=== PATIENT | male | born 1985 | race Caucasian/White ===

== ENCOUNTER 2024-08-19 23:36 | Emergency (ER) | payer MEDICAID ==
[~2024-08-19] VITALS: Ht 172.7 cm; Wt 86.0 kg
[~2024-08-19 23:36] MED LIST: NORPTMEDS CO
[2024-08-20 00:58] VITALS: BP 166/96; PULSE 110; RESP 18; TEMP 98.1; O2SAT 96
[2024-08-20] MEDS ORDERED: IBUP-1456 PO (01:04)
[2024-08-20] MEDS ORDERED: CLIN1CAP70 PO (01:04)
--- NOTE | 2024-08-20 01:05 | ED.PDOC ---
Musculoskeletal HPI Comments 39-year-old male presents to ER with complaints of left 3rd finger pain x two weeks. Patient states that he had stitches placed to left 3rd finger from a laceration caused by a crush injury two weeks ago at a local hospital and notes since his stitches were placed he has been experiencing pain/redness/swelling to left 3rd finger. States that he removed the stitches himself. He rates his current pain a 9/10 to left 3rd finger without radiation. Denies use of medications for current symptoms. Denies fever, body aches, chills, numbness/tingling or any further symptoms/complaints Chief Complaint: Upper Extremity Time Seen by MD: 23:41 Primary Care Provider: UNKNOWN Reviewed Notes: Nurses Notes, Medications, Allergies Allergies: Coded Allergies: NO KNOWN ALLERGIES (Unverified , 11/24/10) Home Meds Active Scripts Ibuprofen (Ibuprofen) 800 Mg Tab, 1 TAB PO TID PRN, #30 TAB 0 Refills Prov:LEIF SANTOS 08/20/24 Clindamycin Hcl (Clindamycin Hcl) 300 Mg Cap, 1 CAP PO TID for 7 Days, #21 CAP 0 Refills Prov:LEIF SANTOS 08/20/24 Reported Medications No Reported Medication (NO REPORTED MEDICATION) Ea, 0 CO UNK, EA PATIENT HAS NO REPORTED MEDICATIONS 04/08/13 Information Source: Patient Mode of Arrival: Ambulatory Last Tetanus: UTD Past Medical History PAST MEDICAL HISTORY: Denies Surgical History: Denies all surgeries Family History Family History: Unknown Social History Smoker: Cigarettes, Less Than 1 Pack/Day Alcohol: Denies ETOH Use Drugs: Denies Drug Use Lives In: Home Constitutional: denies: chills, diaphoresis, fatigue, fever, malaise, sweats, weakness, others EENTM: denies: blurred vision, double vision, ear bleeding, ear discharge, ear drainage, ear pain, ear ringing, eye pain, eye redness, hearing loss, mouth pain, mouth swelling, nasal discharge, nose bleeding, nose congestion, nose pain, photophobia, tearing, throat pain, throat swelling, voice changes, others Respiratory: denies: cough, hemoptysis, orthopnea, SOB at rest, shortness of breath, SOB with excertion, stridor, wheezing, others Cardiovascular: denies: chest pain, dizzy spells, diaphoresis, Dyspnea on exertion, edema, irregular heart beat, left arm pain, lightheadedness, palpitations, PND, syncope, others Gastrointestinal: denies: abdomen distended, abdominal pain, blood streaked bowels, constipated, diarrhea, dysphagia, difficulty swallowing, hematemesis, melena, nausea, poor appetite, poor fluid intake, rectal bleeding, rectal pain, vomiting, others Genitourinary: denies: burning, dysuria, flank pain, frequency, hematuria, incontinence, penile discharge, penile sore, pain, testicle pain, testicle swelling, urgency, others Neurological: denies: dizziness, fainting, headache, left sided numbness, left sided weakness, numbness, paresthesia, pre-existing deficit, right sided numbne ss, right sided weakness, seizure, speech problems, tingling, tremors, weakness, others Musculoskeletal: denies: back pain, gout, joint pain, joint swelling, muscle pain, muscle stiffness, neck pain, others Integumetry: reports: others (As stated in HPI) Allergic/Immunocompromised: denies: Difficulty Healing, Frequent Infections, Hives, Itching, others Hematologic/Lymphatic: denies: anemia, blood clots, easy bleeding, easy bruising, swollen glands, others Endocrine: denies: excessive hunger, excessive sweating, excessive thirst, excessive urination, flushing, intolerance to cold, intolerance to heat, unexplained weight gain, unexplained weight loss, others Psychiatric: denies: anxiety, bipolar disorder, depression, hopeless, panic di sorder, schizophrenia, sleepless, suicidal, others Physical Exam General Appearance: No Apparent Distress HEENT: PERRL/EOMI Neck: Full Range of Motion, Non-Tender, Normal Respiratory: Chest Non-Tender, Lungs Clear, No Accessory Muscle Use, No Respiratory Distress, Normal Breath Sounds Cardiovascular: No Murmur, No Gallop, Regular Rate/Rhythm Breast Exam: Deferred Gastrointestinal: NOT DONE Genitalia: Deferred Pelvic: Deferred Rectal: Deferred Extremities: Normal capillary refill, Normal range of motion Musculoskeletal : Extremity Location: Finger 3 (Mild swelling/TTP/erythema noted to distal phalanx of left 3rd finger. Absent nail noted. No fluctuance/drainage/red streaking or stitches/FB noted. Patient able to fully move all fingers of left hand. Pulses intact) Neurologic: Alert, No Motor Deficits, Normal Affect, Normal Mood, No Sensory Deficits Cerebellar Function: Normal Reflexes: Normal Skin: Dry, Warm Peripheral Pulses: 2+ Radial (R), 2+ Radial (L), 2+ Brachial (R), 2+ Brachial (L) Lymphatic: No Adenopathy Was a procedure done? Was a procedure done?: No Sedation Sedation?: No Differential Diagnosis EXT Differential Diagnosis: Fracture, Dislocation, Neurovascular injury X-Ray, Labs, Meds, VS Vital Signs Date Time Temp Pulse Resp B/P (MAP) Pulse Ox O2 Delivery O2 Flow Rate FiO2 08/20/24 00:58 98.1 110 18 166/96 (119) 96 98.1 08/20/24 00:58 96 Room Air* 0 21 08/19/24 23:36 96.1 110 18 166/94 (118) 96 96.1 Current Medications Medications (Trade) Dose Ordered Sig/Adolfo Route Start Time Stop Time Status Last Admin Ceftriaxone Sodium (Rocephin) 1,000 mg ONCE ONCE IM 08/20/24 01:00 08/20/24 01:01 DC 08/20/24 01:09 Ketorolac Tromethamine (Toradol Injection) 60 mg ONCE ONCE IM 08/20/24 01:00 08/20/24 01:01 DC 08/20/24 01:09 PATIENT: ONELIA BLAIRCCT: [id number]: [id number] : 1985 LOC: ER ROOM / BED: / AGE / SEX: 39 / M ADM STATUS: REG ER SERVICE [id number] ORDERING PHYSICIAN: LEIF SANTOS PROCEDURE(s): LFIN3 - L 3RD FINGER XRAY REASON: left 3rd finger pain ORDER NUMBER(s): [id number], ACCESSION NUMBER(s): [id number] CLINICAL INDICATION: left 3rd finger pain TECHNIQUE: XY L 3RD FINGER XRAY Comparison: None FINDINGS/IMPRESSION: : There is no evidence of acute fracture or dislocation. Soft tissue swelling overlies the distal left 3rd digit. ATED BY: WOLFGANG VICK MD DICTATED DATE/TIME: 08/20/24 0123 SIGNED BY: WOLFGANG VICK MD SIGNED DATE/TIME: 08/20/24 0123 CC: Left Third finger x-ray reviewed Rocephin 1 g IM ordered Toradol 60 mg IM ordered Patient neurovascularly intact and reported improvement in symptoms prior to discharge Wound care/cleaning discussed and advised Smoking cessation discussed and advised Advised to follow up with PCP in 1-2 days Patient verbalized understanding and agreeable with current plan of care Advised to return to ER immediately if symptoms worsen Images Reviewed?: Images reviewed and evaluated by me Time of 1ST Reevaluation: 01:02 Reevaluation 1ST: N/A Patient Education/Counseling: Diagnosis, Treatment, Prognosis, Need For Follow Up Family Education/Counseling: No Family Present Departure 1 Departure Time of Disposition: : Impression: Primary Impression: Cellulitis of finger of left hand Disposition: 01 HOME / SELF CARE / HOMELESS Condition: Stable e-Prescriptions Ibuprofen (Ibuprofen) 800 Mg Tab 1 TAB PO TID PRN, #30 TAB 0 Refills Prov: LEIF SANTOS 08/20/24 Clindamycin Hcl (Clindamycin Hcl) 300 Mg Cap 1 CAP PO TID for 7 Days, #21 CAP 0 Refills Prov: LEIF SANTOS 08/20/24 Discharged With: Self Critical Care Note Critical Care Time?: No Stability Stability form required: No Heart Score Heart Score: Heart Score Response (Comments) Value History N/A 0 EKG N/A 0 Age N/A 0 Risk Factors N/A 0 Troponin N/A 0 Total 0 LEIF SANTOS August 20, 2024 01:05
[2024-08-20] MEDS: KETOROLAC TROMETH 60MG/2ML VIAL IM ONE (01:09)
[2024-08-20] MEDS: cefTRIAXone SOD 1,000 MG VL IM ONE (01:09)
--- NOTE | 2024-08-20 01:25 | DVH ---
CLINICAL INDICATION: left 3rd finger pain TECHNIQUE: XY L 3RD FINGER XRAY Comparison: None FINDINGS/IMPRESSION: : There is no evidence of acute fracture or dislocation. Soft tissue swelling overlies the distal left 3rd digit.
== END 2024-08-20 01:30 | disposition home or self-care (01) ==
LOC: ER 23:36
DX: L03.012 Cellulitis of left finger (principal); F17.210 Nicotine dependence, cigarettes, uncomplicated; Z79.899 Other long term (current) drug therapy
CPT/HCPCS: 73140; 96372; 99284; J0696; J1885